=== PATIENT | male | born 1930 | race Caucasian/White ===

== ENCOUNTER 2018-04-01 12:36 | Day surgery (SDC) | payer MEDICARE, OTHER ==
[2018-04-01] MEDS ORDERED: Acetaminophen 500 MG TAB PO SCH (12:45)
[2018-04-01] MEDS ORDERED: diphenhydrAMINE 25 MG CAP PO SCH (12:45)
[2018-04-01] MEDS ORDERED: Sodium Chloride 0.9% 20 ML ONE (13:02)
[2018-04-01 14:18] VITALS: BP 156/69; TEMP 98.2
== END 2018-04-01 14:56 | disposition home or self-care (01) ==
LOC: ONC/OP 12:36
PROVIDERS: ATTEND Internal Medicine Hematology & Oncology
PROC: 30233N1 Transfusion of Nonautologous Red Blood Cells into Peripheral Vein, Percutaneous Approach (ICD-10-PCS; principal; 2018-04-01)
DX: D64.9 Anemia, unspecified (principal); D69.6 Thrombocytopenia, unspecified; Z79.899 Other long term (current) drug therapy; Z88.5 Allergy status to narcotic agent
CPT/HCPCS: 36430; 86900; 86901; P9035; Q0163

== ENCOUNTER 2018-04-09 08:22 | Day surgery (SDC) | payer MEDICARE, OTHER ==
[2018-04-09] MEDS ORDERED: Sodium Chloride 0.9% 20 ML ONE (08:30)
[2018-04-09] MEDS ORDERED: Acetaminophen 500 MG TAB PO SCH (08:45)
[2018-04-09] MEDS ORDERED: diphenhydrAMINE 25 MG CAP PO SCH (08:45)
[2018-04-09 14:29] VITALS: BP 153/67; TEMP 97.6
== END 2018-04-09 14:29 | disposition home or self-care (01) ==
LOC: ONC/OP 08:22
PROVIDERS: ATTEND Internal Medicine Hematology & Oncology
PROC: 30233N1 Transfusion of Nonautologous Red Blood Cells into Peripheral Vein, Percutaneous Approach (ICD-10-PCS; principal; 2018-04-09)
DX: D64.9 Anemia, unspecified (principal); D69.6 Thrombocytopenia, unspecified; Z88.5 Allergy status to narcotic agent
CPT/HCPCS: 36430; 85014; 85018; 86850; 86900; 86901; P9016; Q0163

== ENCOUNTER 2018-04-26 11:21 | Day surgery (SDC) | payer MEDICARE, OTHER ==
[2018-04-26] MEDS ORDERED: Sodium Chloride 0.9% 20 ML ONE (11:54)
[2018-04-26] MEDS ORDERED: diphenhydrAMINE 25 MG CAP PO SCH (12:15)
[2018-04-26] MEDS ORDERED: Acetaminophen 500 MG TAB PO SCH (12:15)
[2018-04-26 15:57] LABS: Hemoglobin 7.7 g/dL (14.0-18.0); Mean Corpuscular Hemoglobin 29.3 pg (27.0-31.0); Mean Corpuscular Volume 86.2 fL (78.0-98.0); Mean Platelet Volume 6.2 fL (7.4-10.4); Platelet Count 41 thou/uL (130-400); RBC Distribution Width 14.7 % (11.5-14.5); Red Blood Cell (RBC) Count 2.63 mill/uL (4.70-6.10); White Blood Cell (WBC) Count 0.6 thou/uL (4.8-10.8)
[2018-04-26 16:27] LABS: Anisocytosis SLIGHT = 6-15 cells (100X) (0-5/hpf); Elliptocytes SLIGHT = 2-5 cells (100X) (0-1/hpf); Hypochromia SLIGHT = 6-15 cells (100X) (0-5/hpf); Lymphocytes 84 % (21-51); MDiff Complete? YES; Monocytes 4 % (0-10); Neutrophil 12 % (42-75); Platelet Morphology Comment Appears Decreased; Poikilocytosis SLIGHT = 6-15 cells (100X) (0-5/hpf); Tear Drops SLIGHT = 2-5 cells (100X) (0-1/hpf)
[2018-04-26 18:06] VITALS: BP 171/74; TEMP 98
== END 2018-04-26 18:17 | disposition home or self-care (01) ==
LOC: ONC/OP 11:21
PROVIDERS: ATTEND Internal Medicine Hematology & Oncology
PROC: 30233R1 Transfusion of Nonautologous Platelets into Peripheral Vein, Percutaneous Approach (ICD-10-PCS; principal; 2018-04-26)
PROC: 30233N1 Transfusion of Nonautologous Red Blood Cells into Peripheral Vein, Percutaneous Approach (ICD-10-PCS; 2018-04-26)
DX: D64.9 Anemia, unspecified (principal); D69.6 Thrombocytopenia, unspecified; Z88.5 Allergy status to narcotic agent
CPT/HCPCS: 36430; 85025; 85060; 86850; 86900; 86901; P9016; P9035; Q0163

== ENCOUNTER 2018-04-28 19:39 | Inpatient (IN) | payer MEDICARE, OTHER ==
[2018-04-28 20:15] LABS: Hemoglobin 10.1 g/dL (14.0-18.0); Mean Corpuscular Volume 85.5 fL (78.0-98.0); Platelet Count 24 thou/uL (130-400); RBC Distribution Width 14.9 % (11.5-14.5); Red Blood Cell (RBC) Count 3.46 mill/uL (4.70-6.10); White Blood Cell (WBC) Count 0.7 thou/uL (4.8-10.8)
--- NOTE | 2018-04-28 20:34 | RAD ---
CHEST ONE VIEW: 04/28/18 HISTORY: Neutropenia. COMPARISON: None. FINDINGS: The lungs are clear. No pneumothorax or effusion. The cardiac silhouette and mediastinal contours are within normal limits. No acute osseous abnormality. Dense calcifications of the transverse aorta. IMPRESSION: No acute intrathoracic abnormality. POS: HOME
[2018-04-28 20:36] LABS: ALT (SGPT) 24 U/L (8-55); AST (SGOT) 28 U/L (5-34); Albumin 3.5 g/dL (3.4-4.8); Alkaline Phosphatase 78 U/L (40-150); Anion Gap 14 mmol/L (10-20); BUN (Urea Nitrogen) 16 mg/dL (8.4-25.7); Bilirubin, Total 1.1 mg/dL (0.2-1.2); Calc. Creatinine Clearance 0 mL/min (70-130); Calcium 8.8 mg/dL (7.8-10.44); Carbon Dioxide 20 mmol/L (23-31); Chloride 99 mmol/L (98-107); Estimated GFR-MDRD 81; Globulin 3.4 g/dL (2.4-3.5); Glucose 117 mg/dL (83-110); Potassium 3.3 mmol/L (3.5-5.1); Protein, Total 6.9 g/dL (5.8-8.1); Sodium 130 mmol/L (136-145)
[2018-04-28] MEDS ORDERED: Cefepime 2 GM VIAL ONE (20:51)
[2018-04-28 20:52] LABS: Band 1 % (5-11); Lymphocytes 81 % (21-51); MDiff Complete? YES; Monocytes 3 % (0-10); Neutrophil 15 % (42-75); Nucleated RBC 2 % (0); Platelet Morphology Comment Appears Decreased
[2018-04-28 20:57] LABS: CKMB 0.5 ng/mL (0-6.6)
[2018-04-28 20:59] LABS: Bilirubin Small (Negative); Blood, Urine Negative (Negative); Clarity CLEAR (Clear); Glucose, Urine (Dipstick) Negative (Negative); Leukocyte Negative (Negative); Nitrite Negative (Negative); Protein, Urine (Dipstick) 100 mg/dL (Neg-Trace); Specific Gravity, Urine 1.021 (1.002-1.036)
[2018-04-28 21:01] LABS: Bacteria/HPF None Seen HPF (None Seen); Hyaline Casts/LPF 4-6 HYALINE CAST LPF (0-3 Hyaline); Pathc Cast-AUWi Flag 1.01 (0-2.49); Squamous Epithelial 0-3 HPF (0-3); WBC/HPF 0-3 HPF (0-3)
[2018-04-28] MEDS ORDERED: Acetaminophen 500 MG TAB ONE (21:58)
[2018-04-28] MEDS ORDERED: Sodium Chloride 0.9% 100 ML ONE (22:56)
[2018-04-29] MEDS ORDERED: Acetaminophen 325 MG TAB PO PRN (00:24)
[2018-04-29] MEDS ORDERED: Ondansetron ODT 4 MG TAB SL PRN (00:24)
[2018-04-29] MEDS ORDERED: Ondansetron PF 4 MG/2 ML Vial IVP PRN ×2 (00:24→00:49)
[2018-04-29] MEDS ORDERED: Zolpidem Tartrate 5 MG TAB PO PRN (00:49)
[2018-04-29] MEDS ORDERED: Cepastat Lozenges 1 LOZ PO PRN (00:49)
[2018-04-29] MEDS ORDERED: Eucerin (Mineral Oil/Petrolatum,White) 30 gm Jar TOP PRN (00:49)
[2018-04-29] MEDS ORDERED: Calcium Carbonate 500 MG ChewTAB PO PRN (00:49)
[2018-04-29] MEDS ORDERED: Artificial Tears 18 DROP/0.9 ML EA EYE PRN (00:49)
[2018-04-29] MEDS ORDERED: Diabetic Tussin 200 MG/10 ML UDCUP PO PRN (00:49)
[2018-04-29] MEDS ORDERED: Loratadine 10 MG TAB PO PRN (00:49)
[2018-04-29] MEDS ORDERED: Sodium Chloride 0.65% Nasal 44 ML BOT EA NARE PRN (00:49)
[2018-04-29] MEDS ORDERED: Ondansetron ODT 4 MG TAB PO PRN (00:49)
[2018-04-29] MEDS ORDERED: Loperamide HCl 2 MG CAP PO PRN (00:49)
[2018-04-29] MEDS ORDERED: Senokot S 8.6-50 MG TAB PO PRN (00:49)
--- NOTE | 2018-04-29 01:36 | HP ---
PRIMARY CARE PHYSICIAN: Dr. Karson Gomez. The patient is seen and examined on the day of 04/28/2018. PRIMARY ONCOLOGIST: Dr. Cervantes. REASON FOR ADMISSION: Neutropenic fever. HISTORY OF PRESENT ILLNESS: An 87-year-old male who has long history of myelodysplastic syndrome. Initially, his primary care physician was monitoring his blood count, but as his blood count gotten worse and that is why he was referred to pediatric dentist. Dr. Cervantes was following. He did a bone marrow examination and finding was consistent with myelodysplastic syndrome. The patient was also referred to [facility] where they did repeat a bone marrow examination and found with leukemia. At that point, the patient was started on chemotherapy. The patient had first round of chemotherapy about 2 weeks ago. Subsequently, the patient was following with Dr. Cervantes for periodic blood count monitoring. Last Thursday, the patient's WBC was 0.9 and platelet count was 3. The patient was given blood transfusion and platelet transfusion. Last night, the patient was feeling more weak, tired, and he was having fever with chills. The patient was not feeling normal and he was getting more and more tired and going down side and that is why patient's family member called Dr. Cervantes who advised him to go to emergency room for evaluation. Initially, his fever was only momentarily responding to Tylenol , but he kept getting recurrent high-grade fever with chills. He denies any cough , flu-like illness. He denies any constipation, diarrhea. He denies any melena or hematochezia. He denies any urinary tract infection symptoms. In the emergency room, he was febrile to temperature 102.9 and tachycardia with pulse of 101. He had an indeterminate troponin and elevated BNP. The patient was also found with severe neutropenia as well as thrombocytopenia and anemia. The patient is being admitted to telemetry floor for close monitoring. REVIEW OF SYSTEMS: CONSTITUTIONAL: Negative for weight loss or gain, ability to conduct usual activities. SKIN: Negative for rash, itching. EYES: Negative for double vision, pain. ENT/MOUTH: Negative for nose bleeding, neck stiffness, pain, tenderness. CARDIOVASCULAR: Negative for palpitations, dyspnea on exertion, orthopnea. RESPIRATORY: Negative for shortness of breath, wheezing, cough, hemoptysis, fever or night sweats. GASTROINTESTINAL: Negative for poor appetite, abdominal pain, heartburn, nausea , vomiting, constipation, or diarrhea. GENITOURINARY: Negative for urgency, frequency, dysuria, nocturia. MUSCULOSKELETAL: Negative for pain, swelling. NEUROLOGIC/PSYCHIATRIC: Negative for anxiety, depression. ALLERGY/IMMUNOLOGIC: Negative for skin rash, bleeding tendency. Please see my HPI for pertinent positives and negatives. All other review of systems reviewed and negative except as mentioned in HPI. PAST MEDICAL HISTORY: Myelodysplastic syndrome with leukemia, hypothyroidism, and glaucoma. PAST SURGICAL HISTORY: Back surgery x2, bone marrow biopsy, and bladder surgery x3. PAST PSYCHIATRIC HISTORY: Reviewed and negative. SOCIAL HISTORY: The patient drinks alcohol socially and occasionally. He is a former smoker. He quit smoking more than 20 years ago. He is and lives at home with his . ALLERGIES: CODEINE SULFATE. CURRENT HOME MEDICATIONS: The patient take some eyedrops for glaucoma and levothyroxine 112 mcg p.o. daily. Other medications; the patient does not know and they did not bring any more medication bottle, so unable to review at this point. FAMILY HISTORY: No family history of coronary artery disease, stroke, or cancer. EMERGENCY ROOM COURSE: The patient received vancomycin, cefepime, and Tylenol. PHYSICAL EXAMINATION: VITAL SIGNS: On arrival, blood pressure 154/71, pulse 101, respiratory rate 26, temperature 102.9, saturation 99% on room air. Weight 76.6 kg. GENERAL: The patient is currently alert, awake, tachycardic, febrile, weak, pale. HEENT: Head; normocephalic and atraumatic. Eyes; pupils are round, reactive to light. Conjunctiva pale. No nystagmus. ENT; dry mucous membranes. No oral lesion. No pharyngeal erythema. No exudate. NECK: Supple. No JVD. No thyromegaly. No carotid bruit. LUNGS: Clear to auscultation without any rhonchi or rales. CARDIAC: S1, S2 regular. Soft systolic murmur noted. Tachycardia. No gallop. No rub. ABDOMEN: Soft. Bowel sounds present. Mild discomfort noted in lower part of the abdomen. No peritoneal sign. No guarding. No rigidity. No rebound. No suprapubic tenderness. BACK EXAMINATION: Unremarkable. No CVA tenderness. EXTREMITIES: Upper extremities, passive movement of all joints are normal. Lower extremities, no edema. Good distal pulsation. SKIN: No skin rash. HEMATOLOGICAL SYSTEM: No lymphadenopathy. PSYCHIATRIC: Normal affect. SIGNIFICANT LABORATORY DATA: Chest x-ray showing no acute cardiopulmonary process. EKG showing sinus tachycardia, incomplete left bundle-branch block pattern. CBC ; WBC is 0.7, hemoglobin 10.1, platelets 24, bandemia. BMP; sodium 130, potassium 3.3, chloride 99, carbon dioxide 20, BUN 16, creatinine 0.89, glucose 117, calcium 8.8. LFTs; AST 28, ALT 24, alkaline phosphatase 78, albumin 3.5, TSH 0.42. BNP 265. CK-MB 0.5. Troponin 0.032. Urinalysis unremarkable. ASSESSMENT/PLAN: 1. Neutropenic fever. This patient's WBC count is 0.7. The patient has associated high-grade fever. The patient received chemotherapy a couple weeks ago. Source of infection is unclear at this point, but the patient will be treated with vancomycin and Zosyn empirically. We will follow up on blood and urine culture result. We will also check stool for C. difficile if patient has diarrhea. We will continue with gentle IV fluids. 2. Sepsis with acute organ dysfunction. The patient has sepsis criteria with severe neutropenia and fever along with demand ischemia, rule out bacteremia with followup on culture result and as mentioned above, the patient is started on broad- spectrum antibiotic therapy and we will monitor on telemetry floor. 3. Demand ischemia of myocardium. We will do serial cardiac enzyme x3 and monitor on telemetry floor and we will obtain echocardiography. 4. Elevated BNP, most likely diastolic dysfunction, but we will obtain echocardiography to assess EF and other structural abnormality. 5. Abnormal electrolytes due to hyponatremia and hypokalemia. The patient will be given NS with KCl at 50 mL/h and we will repeat BMP tomorrow. Likely, this is due to patient's poor p.o. intake. 6. Thrombocytopenia and anemia along with neutropenia, likely due to post chemotherapy as well as underlying hematological disorder with myelodysplastic syndrome and leukemia. Hematology will be consulted while in hospital and we will monitor daily CBC. 7. Hypothyroidism. TSH is within normal limits. 8. Glaucoma. We will continue Xalatan eye drops, dorzolamide, timolol ophthalmic drops while in hospital. 9. Gout. We will continue allopurinol 300 mg p.o. daily. 10. For deep venous thrombosis prophylaxis, SCD boots. No Lovenox because of low platelet count. 11. Gastrointestinal prophylaxis, Pepcid 20 mg p.o. b.i.d. CODE STATUS: I spoke with the patient and patient's . The patient will be full code. The patient's is surrogate decision maker. DISPOSITION PLAN: Based on clinical course, we are expecting the patient's stay in hospital more than 2 midnights. Plan of care discussed with the patient and family member. This patient was seen and examined in the emergency room on April 28, 2018. Job ID: [id number] [facility]
[2018-04-29] MEDS: NS 0.9% w/ 20 MEQ KCL 1,000 ML/1,000 ML BAG IV SCH ×2 (02:51→21:52)
[2018-04-29] MEDS: Piperacillin/Tazobactam 3.375 GM in Sodium Chloride 0.9% 100 ML IVPB SCH ×2 (02:51→09:13)
[2018-04-29 03:52] LABS: Hemoglobin 10.1 g/dL (14.0-18.0); Mean Corpuscular HGB CONC 33.6 g/dL (32.0-36.0); Mean Corpuscular Hemoglobin 29.5 pg (27.0-31.0); Mean Corpuscular Volume 87.9 fL (78.0-98.0); Mean Platelet Volume 15.2 fL (7.4-10.4); Platelet Count 19 thou/uL (130-400); RBC Distribution Width 14.7 % (11.5-14.5); Red Blood Cell (RBC) Count 3.41 mill/uL (4.70-6.10); White Blood Cell (WBC) Count 0.8 thou/uL (4.8-10.8)
[2018-04-29 03:57] LABS: ALT (SGPT) 21 U/L (8-55); AST (SGOT) 26 U/L (5-34); Albumin 3.3 g/dL (3.4-4.8); Alkaline Phosphatase 66 U/L (40-150); Anion Gap 15 mmol/L (10-20); BUN (Urea Nitrogen) 16 mg/dL (8.4-25.7); Band 2 % (5-11); Bilirubin, Total 1.1 mg/dL (0.2-1.2); Calc. Creatinine Clearance 64 mL/min (70-130); Calcium 8.8 mg/dL (7.8-10.44); Carbon Dioxide 17 mmol/L (23-31); Chloride 103 mmol/L (98-107); Estimated GFR-MDRD 84; Globulin 3.2 g/dL (2.4-3.5); Glucose 113 mg/dL (83-110); MDiff Complete? YES; Neutrophil 14 % (42-75); Potassium 3.4 mmol/L (3.5-5.1); Protein, Total 6.5 g/dL (5.8-8.1); Sodium 132 mmol/L (136-145)
[2018-04-29 03:58] LABS: Lymphocytes 82 % (21-51); Monocytes 2 % (0-10); Platelet Morphology Comment Appears Decreased
[2018-04-29 04:10] LABS: Lactic Acid 1.6 mmol/L (0.5-2.2)
[2018-04-29 04:12] LABS: CKMB 0.4 ng/mL (0-6.6)
[2018-04-29] MEDS: Acetaminophen 325 MG TAB PO PRN ×2 (09:13→17:10)
[2018-04-29] MEDS: Vancomycin HCl 1 GM in Premix Bag 1 BAG IVPB SCH ×2 (11:18→21:53)
[2018-04-29] MEDS: Famotidine 20 MG TAB PO SCH ×2 (11:27→20:43)
--- NOTE | 2018-04-29 14:03 | PDOC.PN ---
- Subjective Encounter Start Date: 04/29/18 Encounter Start Time: 08:00 Pt seen for followup re: sepsis. Denies chest pain or shortness of breath. Weakness+. - Objective Resuscitation Status - Order Detail: 04/28/18 21:59 Resuscitation Status Routine Resuscitation Status: FULL: Full Resuscitation MAR Reviewed: Yes Vital Signs & Weight: Vital Signs (12 hours) Temp Pulse Resp BP BP Pulse Ox 04/29/18 11:15 98.2 F 91 16 98/51 L 96 04/29/18 08:43 100.1 F H 103 H 16 131/60 98 04/29/18 04:45 98.9 F 96 18 109/52 L 97 Weight Weight 166 lb I&O: 04/28/18 04/29/18 04/30/18 06:59 06:59 06:59 Intake Total 250 Output Total 500 Balance -250 Result Diagrams: 04/29/18 03:15 04/29/18 03:15 Additional Labs: Labs reviewed by me Phys Exam - Physical Examination Constitutional: NAD HEENT: moist MMs, sclera anicteric, oral pharynx no lesions, 2+ tonsils Neck: no nodes, no JVD, supple, full ROM Respiratory: clear to auscultation bilateral Cardiovascular: RRR, no rub S1, S2 Gastrointestinal: soft, non-tender, no distention, positive bowel sounds Neurological: moves all 4 limbs Psychiatric: normal affect, A&O x 3 Dx/Plan (1) Sepsis Code(s): A41.9 - SEPSIS, UNSPECIFIED ORGANISM Status: Acute Comment: secondary to MRSA bacteremia, continue IV antibiotics as below (2) Febrile neutropenia Code(s): D70.9 - NEUTROPENIA, UNSPECIFIED; R50.81 - FEVER PRESENTING WITH CONDITIONS CLASSIFIED ELSEWHERE Status: Acute Comment: maninatin neutropenic precautions, continue IV antibiotics as below (3) Bacteremia due to methicillin resistant Staphylococcus aureus Code(s): R78.81 - BACTEREMIA Status: Acute Comment: continue IV vancomycin (4) Pancytopenia Code(s): D61.818 - OTHER PANCYTOPENIA Status: Acute Comment: secondary to chemotherapy (5) Hypokalemia Code(s): E87.6 - HYPOKALEMIA Status: Acute Comment: replace potassium - Plan * . Review of Systems - Review of Systems Constitutional: weakness. negative: fever, chills, sweats, malaise Respiratory: negative: Cough, Shortness of Breath, SOB with Excertion, Pleuritic Pain, Sputum Cardiovascular: negative: chest pain, palpitations, orthopnea, paroxysmal nocturnal dyspnea, edema, light headedness Gastrointestinal: negative: Nausea, Vomiting, Abdominal Pain, Diarrhea, Constipation, Melena, Hematochezia Genitourinary: negative: Dysuria, Frequency, Incontinence, Hematuria, Retention Musculoskeletal: negative: Neck Pain, Shoulder Pain, Arm Pain, Back Pain, Hand Pain, Leg Pain, Foot Pain - Medications/Allergies Allergies/Adverse Reactions: Allergies Allergy/AdvReac Type Severity Reaction Status Date / Time codeine Allergy Verified 02/02/14 13:50 Medications: Current Medications Acetaminophen (Tylenol) 650 mg PO Q4H PRN PRN Reason: Headache/Fever/Mild Pain (1-3) Last Admin: 04/29/18 09:13 Dose: 650 mg Artificial Tears (Tears Naturale) 2 drop EA EYE PRN PRN PRN Reason: Dry Eyes Bisacodyl (Dulcolax) 10 mg FL DAILYPRN PRN PRN Reason: Constipation Calcium Carbonate (Tums) 1,000 mg PO Q4H PRN PRN Reason: Heartburn or Indigestion Famotidine (Pepcid) 20 mg PO BID REPLACED BY [facility] Last Admin: 04/29/18 11:27 Dose: Not Given Guaifenesin (Robitussin Sf) 200 mg PO Q4H PRN PRN Reason: Cough Hydralazine HCl (Apresoline) 10 mg SLOW IVP Q4H PRN PRN Reason: SBP > 180 and HR < 70 Piperacillin Sod/Tazobactam (Sod 3.375 gm/ Sodium Chloride) 100 mls @ 200 mls/ hr IVPB 0300,0900,1500,2100 REPLACED BY [facility] Last Admin: 04/29/18 09:13 Dose: 100 mls Potassium Chloride/Sodium Chloride (Ns 0.9% W/ 20 Meq Kcl) 1,000 ml in 1,000 mls @ 50 mls/hr IV .Q20H REPLACED BY [facility] Last Admin: 04/29/18 02:51 Dose: 1,000 mls Vancomycin HCl 1 gm/ Device 200 mls @ 200 mls/hr IVPB 1000,2200 REPLACED BY [facility] Last Admin: 04/29/18 11:18 Dose: 200 mls Loperamide HCl (Imodium) 2 mg PO PRN PRN PRN Reason: Diarrhea/Loose Stools Loratadine (Claritin) 10 mg PO DAILYPRN PRN PRN Reason: Sinus Symptoms Mineral Oil/White Petrolatum (Eucerin Cream) 0 gm TOP BIDPRN PRN PRN Reason: Dry Skin Miscellaneous Medication (Pharmacy To Dose) 1 each IVPB PRN PRN PRN Reason: Pharmacy to dose Ondansetron HCl (Zofran Odt) 4 mg PO Q6H PRN PRN Reason: Nausea/Vomiting Ondansetron HCl (Zofran) 4 mg IVP Q6H PRN PRN Reason: Nausea/Vomiting Senna/Docusate Sodium (Senokot S) 2 tab PO BIDPRN PRN PRN Reason: Constipation Sodium Chloride ([place] Nasal [place] 0.65%) 0 ml EA NARE QIDPRN PRN PRN Reason: Nasal Congestion Throat Lozenges (Cepastat Lozenges) 1 sumanth PO Q2H PRN PRN Reason: Sore Throat Zolpidem Tartrate (Ambien) 5 mg PO HSPRN PRN PRN Reason: Insomnia
[2018-04-29] MEDS ORDERED: Potassium Chloride 20 MEQ TAB PO SCH (14:15)
--- NOTE | 2018-04-29 15:53 | CON ---
DATE OF CONSULTATION: 04/29/2018 REASON FOR CONSULTATION: Bacteremia. HISTORY OF PRESENT ILLNESS: An 87-year-old with a history of myelodysplastic syndrome and leukemia, currently on chemotherapy, the first round about 2 weeks prior. About 5 days before admission, his white cell count was 0.9 and platelets 3000. The patient was given packed red blood cell transfusion and platelet transfusion. The night before admission, he felt weaker, fever, and chills. Apparently, he fell in the house. He lives in [place] with family members. He was brought in and blood pressure was 150/71 in the emergency room, pulse 101, respirations 26, temperature at 102.9, and O2 saturation 99%. He was described as alert, pale. The lung examination is not described. The initial laboratory data, white cell count 0.7 with platelets 24,000, 15% neutrophils, with total neutrophil count were about approximately 65. Hemoglobin 10.1 and MCV 85. The chemistry sodium 132 and potassium 3.4. Liver profile normal. BNP 265, albumin 3.3, globulin 3.2. Urinalysis with 0 to 3 wbc's, protein 100. 2/2 sets of blood cultures with MRSA. Urine culture, no growth at 12 hours. Imaging studies included a chest x-ray with no infiltrates. Currently, he is awake. He has got hearing impairment, which is moderate. Denies headaches. No visual symptoms, sore throat, odynophagia, or dysphagia. No back pain. No chest pain. No abdominal pain. No diarrhea. No genitourinary symptoms. He is voiding in the urinal. PAST MEDICAL HISTORY: Myelodysplastic syndrome and leukemia diagnosed at [facility] with bone marrow biopsy, chemotherapy started and hypothyroidism. PAST SURGICAL HISTORY: Laminectomy and fusion and bladder cystoscopy. SOCIAL HISTORY: Drinks occasionally. Former smoker. . Lives in [place] with . ALLERGIES: CODEINE. FAMILY HISTORY: Noncontributory. CURRENT MEDICATIONS: 1. Tears Naturale. 2. Dulcolax. 3. Tums. 4. Pepcid. 5. Apresoline. 6. Imodium. 7. Claritin. 8. Zofran. 9. Zosyn. 10. Vancomycin. PHYSICAL EXAMINATION: VITAL SIGNS: T-max 100.1, blood pressure 98/51, pulse 91, respirations 16, and O2 saturation 96%. SKIN: With area of laceration of the elbow on right side with bruising, but no inflammatory changes. The patient has a peripheral IV access. No central lines or ports are noted. No lymphadenopathy. Ocular movements are conjugate. Sclerae are white. Pupils are equal. Conjunctivae normal. Oral cavity normal. Quite a few teeth in place still. NECK: Supple. No jugular vein distention. LUNGS: Symmetric air entry. No crackles or wheezing. CARDIOVASCULAR: S1 and S2 without murmurs. No S3 or S4. ABDOMEN: Soft, not distended or tender. No ascites. No bladder distention. MUSCULOSKELETAL: No joint inflammatory activity. No back tenderness. Moves extremities equally. NEUROLOGIC: He is awake. Other than hearing impairment, seems to be oriented, follows commands. DIAGNOSTIC STUDIES: Followup labs; we have a white cell count of 0.8, hemoglobin 10.1, and platelets 19,000. ASSESSMENT: 1. Myelodysplastic syndrome/leukemia, on chemotherapy. 2. Neutropenia. 3. Methicillin-resistant Staphylococcus aureus bacteremia of uncertain primary site. DISCUSSION: Differential diagnosis includes endocarditis, MRSA of unknown primary site, possible hematogenous pneumonitis, which was not identified by the chest x-ray. We will order a CT of chest without contrast and echocardiogram if not ordered yet. No evidence of spinal involvement or other bone or joint involvement at this point in time. No evidence of phlebitis. Continue vancomycin. Discontinue Zosyn. Job ID: [id number]
--- NOTE | 2018-04-29 15:55 | CON ---
DATE OF CONSULTATION: REASON FOR CONSULTATION: Neutropenic fever. HISTORY OF PRESENT ILLNESS: Mr. Barney is a pleasant 87-year-old gentleman, who has a high-grade myelodysplastic syndrome. He had a bone marrow in February at [facility], showed myelodysplastic syndrome with excessive blasts of 5% to 8%. He had a TP53 mutation. This was a very high-risk setting and is associated with 1 year or less overall survival with 25% potential evolution into AML. Mr. Barney despite his advanced age had a very good functional status and family support, so the decision was made to begin Dacogen chemotherapy. His 1st cycle was in March. His 5-day cycle ended on 04/16. CBC has been followed weekly as he is platelet transfusion dependent with the expectation that his white count would drop slightly. On 04/26, his white count was 0.6, hemoglobin was 7.7, and his platelet count was 41,000. He did receive a transfusion of 1 unit of platelets and 2 units of packed RBCs. Yesterday, he fell at home and was extremely weak. He was brought to the emergency room for evaluation. His temperature was 102.9 and white count was 0.7. Blood cultures were drawn and show gram-positive cocci and MRSA. The patient has been on vancomycin and Zosyn. PAST MEDICAL HISTORY: 1. High-grade myelodysplastic syndrome. 2. Hyperlipidemia. 3. 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 4. Hypothyroidism. 5. Lumbar stenosis. 6. Gout. 7. Ulcerative colitis. 8. Acid reflux. PAST SURGICAL HISTORY: 1. Laminectomy. 2. Nasal surgery. 3. Repeat laminectomy. 4. TURBT in 10/2016. ALLERGIES: NO KNOWN DRUG ALLERGIES. HOME MEDICATIONS: 1. Eye drops twice daily. 2. Folic acid daily. 3. Levothyroxine 112 mcg daily. 4. Magnesium 30 mg daily. 5. Potassium chloride 10 mEq daily. 6. Multivitamins daily. FAMILY HISTORY: No history of blood disorder or malignancy. SOCIAL HISTORY: , has 3 children. Lives with his spouse. No alcohol, tobacco, or illicit drug use. REVIEW OF SYSTEMS: Deferred secondary to somnolence. PHYSICAL EXAMINATION: VITAL SIGNS: Temperature 100.1, pulse is 103, respiratory rate 16, BP is 98/51, and he is 98% on room air. GENERAL: Chronically ill-appearing male, in no acute distress. HEENT: Normocephalic and atraumatic. NECK: Supple. CV: Regular rate and rhythm. LUNGS: Clear. ABDOMEN: Soft and nontender. Bowel sounds are positive. EXTREMITIES: No clubbing, cyanosis, or edema. SKIN: He has no rash. HEMATOLOGIC: He has scattered bruising on his arms and trunk. NEUROLOGIC: Nonfocal. PERTINENT LABORATORY DATA AND X-RAYS: Current WBCs are 0.8, hemoglobin 10.1, hematocrit 30, platelet count is 19, neutrophils are 14%, got 2% bands, and 82% lymphocytes. Sodium 132, potassium 3.4, chloride 103, CO2 of 17, BUN is 16, and creatinine 0.86. Lactic acid 1.6. Calcium 8.8. Bilirubin is 1.1, AST is 26, ALT is 21, and alkaline phosphatase is 66. Serum total protein is 6.5, albumin 3.3, and globulin 3.2. Chest x-ray showed no acute process. ASSESSMENT: 1. High-grade myelodysplastic syndrome status post cycle 1 of Dacogen. 2. Neutropenic fever with methicillin-resistant Staphylococcus aureus bacteremia. 3. 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 DISCUSSION: The patient has been started on empiric antibiotics. I will consult Infectious Disease for their opinion. Follow a CBC daily and transfuse for platelets less than 15. I discussed code status with the family. I will have the palliative care team come and discuss this further as he has a poor prognosis. Thank you for the consult. We will follow his hospital course. Job ID: [id number]
[2018-04-29] MEDS: Latanoprost 0.005% Ophth Soln 2.5 ml Bottle EA EYE SCH (20:44)
[2018-04-29] MEDS: DorzolamidE/Timolol 2%/0.5% Ophth Soln 10 ml Bottle EA EYE SCH (20:50)
[2018-04-30] MEDS: NS 0.9% w/ 20 MEQ KCL 1,000 ML/1,000 ML BAG IV SCH ×2 (01:52→03:20)
[2018-04-30] MEDS: Acetaminophen 325 MG TAB PO PRN (05:36)
[2018-04-30] MEDS: Levothyroxine Sodium 112 MCG TAB PO SCH (05:36)
[2018-04-30 06:52] LABS: Hemoglobin 7.7 g/dL (14.0-18.0); Mean Corpuscular HGB CONC 34.7 g/dL (32.0-36.0); Mean Corpuscular Hemoglobin 29.9 pg (27.0-31.0); Mean Corpuscular Volume 86.1 fL (78.0-98.0); Mean Platelet Volume 16.4 fL (7.4-10.4); Platelet Count 10 thou/uL (130-400); RBC Distribution Width 14.9 % (11.5-14.5); Red Blood Cell (RBC) Count 2.57 mill/uL (4.70-6.10); White Blood Cell (WBC) Count 0.4 thou/uL (4.8-10.8)
[2018-04-30 07:15] LABS: MDiff Complete? YES; Ovalocytes SLIGHT = 2-5 cells (100X) (0-1/hpf); Platelet Morphology Comment Appears Decreased
[2018-04-30 08:30] LABS: Vancomycin, Trough 14.3 ug/mL
[2018-04-30] MEDS: Famotidine 20 MG TAB PO SCH ×2 (08:58→21:34)
[2018-04-30] MEDS: DorzolamidE/Timolol 2%/0.5% Ophth Soln 10 ml Bottle EA EYE SCH ×2 (08:58→21:35)
[2018-04-30] MEDS: Vancomycin HCl 1 GM in Premix Bag 1 BAG IVPB SCH ×2 (13:58→21:53)
--- NOTE | 2018-04-30 14:01 | PRG ---
DATE OF SERVICE: 04/30/2018 SUBJECTIVE: Feeling better. No respiratory symptoms. No abdominal pain. No cough. No genitourinary symptoms. OBJECTIVE: VITAL SIGNS: T-max 98, BP 140/60. LUNGS: Clear. HEART: S1 and S2. Regular rate. ABDOMEN: Soft, not distended. LABORATORY DATA: White cell count 0.4, total neutrophil count is not reportable , and platelets at 10. Microbiology with Staph aureus from blood cultures, which is MRSA. Vancomycin trough 14. IMAGING STUDIES: There is an echocardiogram, which was completed, and we have a normal ejection fraction, some diastolic dysfunction, moderate aortic root regurgitation. ASSESSMENT AND DISCUSSION: 1. Myelodysplastic syndrome on chemotherapy. 2. Neutropenia. 3. Methicillin-resistant Staphylococcus aureus bacteremia. We are uncertain for primary site. 4. He does have moderate aortic regurgitation. May consider MAT once he recovers from his neutropenia to rule out aortic valve endocarditis. Continue vancomycin for now. I did not order yet the CT chest. We will go ahead and order that to rule out hematogenous pneumonia. Job ID: [id number] [facility]
--- NOTE | 2018-04-30 15:55 | CT ---
NONCONTRAST CT THORAX: Date: 04/30/18 HISTORY: Bacteremia, septic pneumonia. COMPARISON: None available. FINDINGS: There is a very small right pleural effusion and associated atelectasis. There are minimal parenchyma l changes at the left lung base, also likely attributable to atelectasis. No additional areas of cons olidation are seen. There is a small, slightly irregular, approximately 5.0 mm pulmonary nodule in th e right middle lobe inferiorly adjacent to the hemidiaphragm. This is too small to further characteri ze. Calcified granuloma is seen in the left lower lobe. There is suggestion of a tiny pneumothorax at the posteromedial aspect right lung base. Vascular calcifications are seen in the thoracic aorta, and to a lesser extent within the coronary ar teries. A tiny pericardial effusion versus pericardial thickening is present. Lack of intravenous contrast does limit evaluation of the mediastinal structures, as well as vasculat ure, but no definitive enlarged lymph nodes are appreciated. Calcified granuloma seen in the right hepatic lobe. Remainder of the visualized upper abdomen demonstrates grossly normal nonenhanced CT appearance. Degenerative changes are seen in the spine. IMPRESSION: 1. Tiny pneumothorax along the medial aspect of the right lung base associated with a small right pl eural effusion. 2. Atelectasis left lung base. 3. Too small to characterize, approximately 5.0 mm, right middle lobe pulmonary nodule. 4. Tiny pericardial effusion. Above findings discussed with Dr. Gross on 04/30/18 at 1526 hours. CODE CR. POS: [facility]
--- NOTE | 2018-04-30 19:36 | PDOC.PN ---
- Subjective Encounter Start Date: 04/30/18 Encounter Start Time: 19:35 (late entry) Subjective: fells a little bit better -: care discussed w at bedside - Objective Resuscitation Status - Order Detail: 04/30/18 12:56 Resuscitation Status Routine Resuscitation Status: DNAR: NO Resuscitation Discussed with: confirmed with pt and his Additional comments: DNAR consent signed by pt himself MAR Reviewed: Yes Vital Signs & Weight: Vital Signs (12 hours) Temp Pulse Pulse Resp BP BP Pulse Ox 04/30/18 17:44 99.5 F 100 18 172/74 H 96 04/30/18 12:23 97.9 F 82 18 145/65 H 98 04/30/18 11:45 98.0 F 83 18 109/52 L 99 04/30/18 10:12 98.6 F 70 18 105/50 L 04/30/18 10:04 96.7 F L 75 18 109/57 L 98 04/30/18 08:00 98.0 F 76 18 108/55 L 97 Weight Admit Weight 166 lb Weight 166 lb I&O: 04/29/18 04/30/18 05/01/18 06:59 06:59 06:59 Intake Total 250 900 250 Output Total 500 550 Balance -250 350 250 Result Diagrams: 04/30/18 06:04 04/29/18 03:15 Additional Labs: Microbiology 04/28/18 20:32 Urine voided Urine Culture - Preliminary NO GROWTH AT 12 HOURS 04/28/18 20:13 Venous blood - Right Hand Blood Culture - Preliminary Staphylococcus aureus 04/28/18 19:58 Venous blood - Left Arm Blood Culture - Preliminary Methicillin resistant S.aureus Laboratory Tests 04/28/18 04/28/18 04/29/18 19:58 19:58 03:15 Troponin I 0.032 H 0.042 H B-Natriuretic Peptide 265.0 H 04/29/18 05:52 Troponin I 0.041 H B-Natriuretic Peptide Phys Exam - Physical Examination Constitutional: NAD weak tired but nad HEENT: PERRLA, moist MMs, sclera anicteric, oral pharynx no lesions Neck: no JVD Respiratory: no wheezing, no rales, no rhonchi, clear to auscultation bilateral Cardiovascular: RRR, no significant murmur Gastrointestinal: soft, non-tender, no distention, positive bowel sounds Musculoskeletal: no edema, pulses present Neurological: non-focal, normal sensation, moves all 4 limbs Psychiatric: normal affect, A&O x 3 Deviation from normal: circular rash on buttock Dx/Plan (1) Sepsis Code(s): A41.9 - SEPSIS, UNSPECIFIED ORGANISM Status: Acute Comment: secondary to MRSA bacteremia, continue IV antibiotics as below (2) Bacteremia due to methicillin resistant Staphylococcus aureus Code(s): R78.81 - BACTEREMIA Status: Acute Comment: continue IV vancomycin (3) Febrile neutropenia Code(s): D70.9 - NEUTROPENIA, UNSPECIFIED; R50.81 - FEVER PRESENTING WITH CONDITIONS CLASSIFIED ELSEWHERE Status: Acute Comment: maninatin neutropenic precautions, continue IV antibiotics as below (4) Hypokalemia Code(s): E87.6 - HYPOKALEMIA Status: Acute Comment: replace potassium (5) Pancytopenia Code(s): D61.818 - OTHER PANCYTOPENIA Status: Acute Comment: secondary to chemotherapy (6) Demand ischemia Code(s): I24.8 - OTHER FORMS OF ACUTE ISCHEMIC HEART DISEASE Status: Acute Comment: from sepsis - Plan DVT proph w/SCDs trasfuse platelt.monitor -: cont vancomycin.apprecitae ID recs -: ECHO shows AR and MR. -: CT chest w small PTX 7 small lung nodule.no PNA -: supportive care.poor prognosis.PCT for code status .am labs * . Review of Systems - Review of Systems Constitutional: weakness, malaise - Medications/Allergies Allergies/Adverse Reactions: Allergies Allergy/AdvReac Type Severity Reaction Status Date / Time codeine Allergy Verified 02/02/14 13:50 Medications: Current Medications Acetaminophen (Tylenol) 650 mg PO Q4H PRN PRN Reason: Headache/Fever/Mild Pain (1-3) Last Admin: 04/30/18 05:36 Dose: 650 mg Artificial Tears (Tears Naturale) 2 drop EA EYE PRN PRN PRN Reason: Dry Eyes Bisacodyl (Dulcolax) 10 mg [place] DAILYPRN PRN PRN Reason: Constipation Calcium Carbonate (Tums) 1,000 mg PO Q4H PRN PRN Reason: Heartburn or Indigestion Dorzolamide/Timolol (Cosopt 2-0.5% Ophth Soln) 1 drop EA EYE BID [facility] Last Admin: 04/30/18 08:58 Dose: 1 drop Famotidine (Pepcid) 20 mg PO BID [facility] Last Admin: 04/30/18 08:58 Dose: Not Given Guaifenesin (Robitussin Sf) 200 mg PO Q4H PRN PRN Reason: Cough Hydralazine HCl (Apresoline) 10 mg SLOW IVP Q4H PRN PRN Reason: SBP > 180 and HR < 70 Potassium Chloride/Sodium Chloride (Ns 0.9% W/ 20 Meq Kcl) 1,000 ml in 1,000 mls @ 50 mls/hr IV .Q20H [facility] Last Admin: 04/30/18 03:20 Dose: 1,000 mls Vancomycin HCl 1 gm/ Device 200 mls @ 200 mls/hr IVPB 1000,2200 [facility] Last Admin: 04/30/18 13:58 Dose: 200 mls Latanoprost (Xalatan 0.005% Ophth Soln) 1 drop EA EYE HS [facility] Last Admin: 04/29/18 20:44 Dose: 1 drop Levothyroxine Sodium (Synthroid) 112 mcg PO 0600 [facility] Last Admin: 04/30/18 05:36 Dose: 112 mcg Loperamide HCl (Imodium) 2 mg PO PRN PRN PRN Reason: Diarrhea/Loose Stools Loratadine (Claritin) 10 mg PO DAILYPRN PRN PRN Reason: Sinus Symptoms Mineral Oil/White Petrolatum (Eucerin Cream) 0 gm TOP BIDPRN PRN PRN Reason: Dry Skin Miscellaneous Medication (Pharmacy To Dose) 1 each IVPB PRN PRN PRN Reason: Pharmacy to dose Nystatin (Mycostatin Powder) 1 gm TOP BID [facility] Ondansetron HCl (Zofran Odt) 4 mg PO Q6H PRN PRN Reason: Nausea/Vomiting Ondansetron HCl (Zofran) 4 mg IVP Q6H PRN PRN Reason: Nausea/Vomiting Senna/Docusate Sodium (Senokot S) 2 tab PO BIDPRN PRN PRN Reason: Constipation Sodium Chloride ([place] Nasal [place] 0.65%) 0 ml [place] NARE QIDPRN PRN PRN Reason: Nasal Congestion Throat Lozenges (Cepastat Lozenges) 1 sumanth PO Q2H PRN PRN Reason: Sore Throat Zolpidem Tartrate (Ambien) 5 mg PO HSPRN PRN PRN Reason: Insomnia
[2018-04-30] MEDS ORDERED: Potassium Chloride 40 MEQ in Sodium Chloride 0.9% 500 ML IVPB SCH (20:00)
[2018-04-30] MEDS: Latanoprost 0.005% Ophth Soln 2.5 ml Bottle EA EYE SCH (21:31)
[2018-04-30] MEDS: Nystatin Powder 15 GM BOT TOP SCH (21:35)
[2018-04-30] MEDS: Bisacodyl 10 MG SUPP PR PRN (21:47)
[2018-05-01] MEDS: Acetaminophen 325 MG TAB PO PRN ×2 (04:00→20:14)
[2018-05-01 05:29] LABS: Hemoglobin 7.6 g/dL (14.0-18.0); Mean Corpuscular HGB CONC 33.6 g/dL (32.0-36.0); Mean Corpuscular Volume 86.3 fL (78.0-98.0); Mean Platelet Volume 11.2 fL (7.4-10.4); Platelet Count 29 thou/uL (130-400); Red Blood Cell (RBC) Count 2.62 mill/uL (4.70-6.10); White Blood Cell (WBC) Count 0.6 thou/uL (4.8-10.8)
[2018-05-01] MEDS: Levothyroxine Sodium 112 MCG TAB PO SCH (05:33)
[2018-05-01 05:46] LABS: Anion Gap 9 mmol/L (10-20); BUN (Urea Nitrogen) 14 mg/dL (8.4-25.7); Calc. Creatinine Clearance 78 mL/min (70-130); Carbon Dioxide 19 mmol/L (23-31); Chloride 102 mmol/L (98-107); Estimated GFR-MDRD Greater than 90; Glucose 84 mg/dL (83-110); Magnesium 1.5 mg/dL (1.6-2.6); Potassium 3.8 mmol/L (3.5-5.1); Sodium 126 mmol/L (136-145)
[2018-05-01 05:49] LABS: Band 12 % (5-11); Lymphocytes 44 % (21-51); MDiff Complete? YES; Monocytes 16 % (0-10); Neutrophil 28 % (42-75); Platelet Morphology Comment Appears Decreased; RBC Morphology Normal
[2018-05-01] MEDS: Nystatin Powder 15 GM BOT TOP SCH ×2 (09:14→21:44)
[2018-05-01] MEDS: Famotidine 20 MG TAB PO SCH ×2 (09:14→21:43)
[2018-05-01] MEDS: DorzolamidE/Timolol 2%/0.5% Ophth Soln 10 ml Bottle EA EYE SCH ×2 (09:14→21:45)
[2018-05-01] MEDS: Vancomycin HCl 1 GM in Premix Bag 1 BAG IVPB SCH ×2 (09:15→21:44)
[2018-05-01] MEDS: NS 0.9% w/ 20 MEQ KCL 1,000 ML/1,000 ML BAG IV SCH (12:52)
--- NOTE | 2018-05-01 12:59 | PDOC.PN ---
- Subjective Encounter Start Date: 05/01/18 Encounter Start Time: 08:00 Pt seen for followup re: sepsis. - Objective Resuscitation Status - Order Detail: 04/30/18 12:56 Resuscitation Status Routine Resuscitation Status: DNAR: NO Resuscitation Discussed with: confirmed with pt and his Additional comments: DNAR consent signed by pt himself MAR Reviewed: Yes Vital Signs & Weight: Vital Signs (12 hours) Temp Pulse Resp BP Pulse Ox 05/01/18 09:17 97.6 F 75 18 121/59 L 97 05/01/18 08:30 97 05/01/18 05:30 98.1 F 05/01/18 04:00 101.4 F H 83 18 132/63 96 Weight Admit Weight 166 lb Weight 171 lb 4.8 oz I&O: 04/30/18 05/01/18 05/02/18 06:59 06:59 07:59 Intake Total 900 2020 Output Total 550 700 400 Balance 350 1320 -400 Result Diagrams: 05/01/18 05:02 05/01/18 05:02 EKG Reviewed by me: Yes (Tele: V-paced) Phys Exam - Physical Examination Constitutional: NAD HEENT: moist MMs Neck: supple Respiratory: clear to auscultation bilateral Cardiovascular: RRR Gastrointestinal: soft Neurological: moves all 4 limbs Psychiatric: normal affect Skin: no rash Dx/Plan (1) Sepsis Code(s): A41.9 - SEPSIS, UNSPECIFIED ORGANISM Status: Acute Comment: secondary to MRSA bacteremia, improving (2) Febrile neutropenia Code(s): D70.9 - NEUTROPENIA, UNSPECIFIED; R50.81 - FEVER PRESENTING WITH CONDITIONS CLASSIFIED ELSEWHERE Status: Acute Comment: maintain neutropenic precautions (3) Bacteremia due to methicillin resistant Staphylococcus aureus Code(s): R78.81 - BACTEREMIA Status: Acute Comment: on IV vancomycin (4) Pancytopenia Code(s): D61.818 - OTHER PANCYTOPENIA Status: Acute Comment: secondary to chemotherapy, continue to monitor counts (5) Hypokalemia Code(s): E87.6 - HYPOKALEMIA Status: Resolved - Plan * . Review of Systems - Review of Systems Respiratory: Cough, Sputum Cardiovascular: negative: chest pain, palpitations, orthopnea, paroxysmal nocturnal dyspnea, edema, light headedness Gastrointestinal: negative: Nausea, Vomiting, Abdominal Pain, Diarrhea, Constipation, Melena, Hematochezia - Medications/Allergies Allergies/Adverse Reactions: Allergies Allergy/AdvReac Type Severity Reaction Status Date / Time codeine Allergy Verified 02/02/14 13:50 Medications: Current Medications Acetaminophen (Tylenol) 650 mg PO Q4H PRN PRN Reason: Headache/Fever/Mild Pain (1-3) Last Admin: 05/01/18 04:00 Dose: 650 mg Artificial Tears (Tears Naturale) 2 drop EA EYE PRN PRN PRN Reason: Dry Eyes Bisacodyl (Dulcolax) 10 mg [place] DAILYPRN PRN PRN Reason: Constipation Last Admin: 04/30/18 21:47 Dose: 10 mg Calcium Carbonate (Tums) 1,000 mg PO Q4H PRN PRN Reason: Heartburn or Indigestion Dorzolamide/Timolol (Cosopt 2-0.5% Ophth Soln) 1 drop EA EYE BID [facility] Last Admin: 05/01/18 09:14 Dose: 1 drop Famotidine (Pepcid) 20 mg PO BID [facility] Last Admin: 05/01/18 09:14 Dose: 20 mg Guaifenesin (Robitussin Sf) 200 mg PO Q4H PRN PRN Reason: Cough Hydralazine HCl (Apresoline) 10 mg SLOW IVP Q4H PRN PRN Reason: SBP > 180 and HR < 70 Potassium Chloride/Sodium Chloride (Ns 0.9% W/ 20 Meq Kcl) 1,000 ml in 1,000 mls @ 50 mls/hr IV .Q20H [facility] Last Admin: 05/01/18 12:52 Dose: 1,000 mls Vancomycin HCl 1 gm/ Device 200 mls @ 200 mls/hr IVPB 1000,2200 [facility] Last Admin: 05/01/18 09:15 Dose: 200 mls Latanoprost (Xalatan 0.005% Ophth Soln) 1 drop EA EYE HS [facility] Last Admin: 04/30/18 21:31 Dose: 1 drop Levothyroxine Sodium (Synthroid) 112 mcg PO 0600 [facility] Last Admin: 05/01/18 05:33 Dose: 112 mcg Loperamide HCl (Imodium) 2 mg PO PRN PRN PRN Reason: Diarrhea/Loose Stools Loratadine (Claritin) 10 mg PO DAILYPRN PRN PRN Reason: Sinus Symptoms Mineral Oil/White Petrolatum (Eucerin Cream) 0 gm TOP BIDPRN PRN PRN Reason: Dry Skin Miscellaneous Medication (Pharmacy To Dose) 1 each IVPB PRN PRN PRN Reason: Pharmacy to dose Nystatin (Mycostatin Powder) 1 gm TOP BID [facility] Last Admin: 05/01/18 09:14 Dose: 1 gm Ondansetron HCl (Zofran Odt) 4 mg PO Q6H PRN PRN Reason: Nausea/Vomiting Ondansetron HCl (Zofran) 4 mg IVP Q6H PRN PRN Reason: Nausea/Vomiting Senna/Docusate Sodium (Senokot S) 2 tab PO BIDPRN PRN PRN Reason: Constipation Sodium Chloride ([place] Nasal [place] 0.65%) 0 ml EA NARE QIDPRN PRN PRN Reason: Nasal Congestion Throat Lozenges (Cepastat Lozenges) 1 sumanth PO Q2H PRN PRN Reason: Sore Throat Zolpidem Tartrate (Ambien) 5 mg PO HSPRN PRN PRN Reason: Insomnia
[2018-05-01] MEDS: Latanoprost 0.005% Ophth Soln 2.5 ml Bottle EA EYE SCH (21:44)
--- NOTE | 2018-05-01 23:35 | EKG ---
Test Reason : Blood Pressure : / mmHG Vent. Rate : 102 BPM Atrial Rate : 102 BPM P-R Int : 152 ms QRS Dur : 166 ms QT Int : 396 ms P-R-T Axes : 090 -48 105 degrees QTc Int : 516 ms Sinus tachycardia Left axis deviation Left bundle branch block Abnormal ECG Confirmed by SILVERIO LARA, KARTIK ([id number]), field map editor RADHA RUFF ([id number]) on 05/01/2018 11:35:18 PM Referred By: Confirmed By:KARTIK SAWYER MD
[2018-05-02 05:22] LABS: Mean Corpuscular HGB CONC 33.3 g/dL (32.0-36.0); Mean Corpuscular Hemoglobin 29.1 pg (27.0-31.0); Mean Corpuscular Volume 87.5 fL (78.0-98.0); Mean Platelet Volume 13.2 fL (7.4-10.4); Platelet Count 26 thou/uL (130-400); RBC Distribution Width 15.1 % (11.5-14.5); Red Blood Cell (RBC) Count 3.07 mill/uL (4.70-6.10); White Blood Cell (WBC) Count 0.5 thou/uL (4.8-10.8)
[2018-05-02 05:38] LABS: Anion Gap 11 mmol/L (10-20); BUN (Urea Nitrogen) 12 mg/dL (8.4-25.7); Calc. Creatinine Clearance 88 mL/min (70-130); Calcium 8.6 mg/dL (7.8-10.44); Carbon Dioxide 21 mmol/L (23-31); Chloride 106 mmol/L (98-107); Estimated GFR-MDRD Greater than 90; Glucose 94 mg/dL (83-110); Potassium 3.7 mmol/L (3.5-5.1); Sodium 134 mmol/L (136-145)
[2018-05-02] MEDS: Levothyroxine Sodium 112 MCG TAB PO SCH (05:39)
[2018-05-02] MEDS: NS 0.9% w/ 20 MEQ KCL 1,000 ML/1,000 ML BAG IV SCH (09:10)
[2018-05-02] MEDS: Famotidine 20 MG TAB PO SCH ×2 (09:11→20:58)
[2018-05-02] MEDS: Vancomycin HCl 1 GM in Premix Bag 1 BAG IVPB SCH ×2 (09:11→21:00)
[2018-05-02] MEDS: DorzolamidE/Timolol 2%/0.5% Ophth Soln 10 ml Bottle EA EYE SCH ×2 (09:11→20:59)
[2018-05-02] MEDS: Nystatin Powder 15 GM BOT TOP SCH ×2 (09:11→20:59)
--- NOTE | 2018-05-02 13:13 | PDOC.PN ---
- Subjective Encounter Start Date: 05/02/18 Encounter Start Time: 08:20 Pt seen for followup re: sepsis. Feels about the same as yesterday, no new complaints. - Objective Resuscitation Status - Order Detail: 04/30/18 12:56 Resuscitation Status Routine Resuscitation Status: DNAR: NO Resuscitation Discussed with: confirmed with pt and his Additional comments: DNAR consent signed by pt himself MAR Reviewed: Yes Vital Signs & Weight: Vital Signs (12 hours) Temp Pulse Resp BP BP Pulse Ox 05/02/18 10:53 98.1 F 77 16 114/55 L 97 05/02/18 09:10 99 05/02/18 07:15 97.5 F L 84 18 145/65 H 99 05/02/18 04:40 98.0 F 77 20 141/64 H 99 Weight Admit Weight 166 lb Weight 174 lb 4.8 oz I&O: 05/01/18 05/02/18 05/03/18 05:59 06:59 06:59 Intake Total Output Total Balance Result Diagrams: 05/02/18 04:18 05/02/18 04:18 EKG Reviewed by me: Yes (Tele: NSR) Phys Exam - Physical Examination Constitutional: NAD HEENT: moist MMs Neck: supple Respiratory: clear to auscultation bilateral Cardiovascular: RRR Gastrointestinal: soft Neurological: moves all 4 limbs Psychiatric: normal affect Dx/Plan (1) Sepsis Code(s): A41.9 - SEPSIS, UNSPECIFIED ORGANISM Status: Acute Comment: Improving (2) Febrile neutropenia Code(s): D70.9 - NEUTROPENIA, UNSPECIFIED; R50.81 - FEVER PRESENTING WITH CONDITIONS CLASSIFIED ELSEWHERE Status: Acute Comment: maintain neutropenic precautions (3) Bacteremia due to methicillin resistant Staphylococcus aureus Code(s): R78.81 - BACTEREMIA Status: Acute Comment: on IV vancomycin, contact precautions (4) Pancytopenia Code(s): D61.818 - OTHER PANCYTOPENIA Status: Acute Comment: continue to monitor counts (5) Hypokalemia Code(s): E87.6 - HYPOKALEMIA Status: Resolved - Plan * . Review of Systems - Review of Systems Constitutional: fever, weakness. negative: chills, sweats, malaise Respiratory: Cough, Sputum. negative: Dry, Shortness of Breath, Hemoptysis, SOB with Excertion, Pleuritic Pain, Wheezing - Medications/Allergies Allergies/Adverse Reactions: Allergies Allergy/AdvReac Type Severity Reaction Status Date / Time codeine Allergy Verified 02/02/14 13:50 Medications: Current Medications Acetaminophen (Tylenol) 650 mg PO Q4H PRN PRN Reason: Headache/Fever/Mild Pain (1-3) Last Admin: 05/01/18 20:14 Dose: 650 mg Artificial Tears (Tears Naturale) 2 drop EA EYE PRN PRN PRN Reason: Dry Eyes Bisacodyl (Dulcolax) 10 mg [place] DAILYPRN PRN PRN Reason: Constipation Last Admin: 04/30/18 21:47 Dose: 10 mg Calcium Carbonate (Tums) 1,000 mg PO Q4H PRN PRN Reason: Heartburn or Indigestion Dorzolamide/Timolol (Cosopt 2-0.5% Ophth Soln) 1 drop EA EYE BID [facility] Last Admin: 05/02/18 09:11 Dose: 1 drop Famotidine (Pepcid) 20 mg PO BID [facility] Last Admin: 05/02/18 09:11 Dose: Not Given Guaifenesin (Robitussin Sf) 200 mg PO Q4H PRN PRN Reason: Cough Hydralazine HCl (Apresoline) 10 mg SLOW IVP Q4H PRN PRN Reason: SBP > 180 and HR < 70 Potassium Chloride/Sodium Chloride (Ns 0.9% W/ 20 Meq Kcl) 1,000 ml in 1,000 mls @ 50 mls/hr IV .Q20H [facility] Last Admin: 05/02/18 09:10 Dose: 1,000 mls Vancomycin HCl 1 gm/ Device 200 mls @ 200 mls/hr IVPB 1000,2200 [facility] Last Admin: 05/02/18 09:11 Dose: 200 mls Latanoprost (Xalatan 0.005% Ophth Soln) 1 drop EA EYE HS [facility] Last Admin: 05/01/18 21:44 Dose: 1 drop Levothyroxine Sodium (Synthroid) 112 mcg PO 0600 [facility] Last Admin: 05/02/18 05:39 Dose: 112 mcg Loperamide HCl (Imodium) 2 mg PO PRN PRN PRN Reason: Diarrhea/Loose Stools Loratadine (Claritin) 10 mg PO DAILYPRN PRN PRN Reason: Sinus Symptoms Mineral Oil/White Petrolatum (Eucerin Cream) 0 gm TOP BIDPRN PRN PRN Reason: Dry Skin Miscellaneous Medication (Pharmacy To Dose) 1 each IVPB PRN PRN PRN Reason: Pharmacy to dose Nystatin (Mycostatin Powder) 1 gm TOP BID [facility] Last Admin: 05/02/18 09:11 Dose: 1 gm Ondansetron HCl (Zofran Odt) 4 mg PO Q6H PRN PRN Reason: Nausea/Vomiting Ondansetron HCl (Zofran) 4 mg IVP Q6H PRN PRN Reason: Nausea/Vomiting Senna/Docusate Sodium (Senokot S) 2 tab PO BIDPRN PRN PRN Reason: Constipation Sodium Chloride ([place] Nasal [place] 0.65%) 0 ml EA NARE QIDPRN PRN PRN Reason: Nasal Congestion Throat Lozenges (Cepastat Lozenges) 1 sumanth PO Q2H PRN PRN Reason: Sore Throat Zolpidem Tartrate (Ambien) 5 mg PO HSPRN PRN PRN Reason: Insomnia
--- NOTE | 2018-05-02 16:17 | PRG ---
DATE OF SERVICE: 05/02/2018 SUBJECTIVE: A little bit of pleuritic pain in the right anterior chest intermittently with coughing spells. No headaches. No sore throat, odynophagia, or dysphagia. No dyspnea. No back pain. No other appendicular structure symptoms, having increased urinary frequency. OBJECTIVE: VITAL SIGNS: Temperature max 102 yesterday at 7:00 p.m., now is 98.1; BP 114/55; pulse 77; respirations 16; and O2 saturation 97%. GENERAL: Peripheral IV access. Ocular movements conjugate. Chronically ill-appearing, in no acute distress, oriented. LUNGS: Symmetric air entry. No crackles or wheezing. HEART: S1 and S2. Regular rate. ABDOMEN: Soft, not distended. EXTREMITIES: No joint inflammatory process. No back tenderness. LABORATORY DATA: White cell count 0.5, hemoglobin 9, platelets 26,000. Creatinine 0.6. The CT of chest showed small pneumothorax on the right side. ASSESSMENT AND PLAN: Myelodysplastic syndrome, on chemo; neutropenia; methicillin-resistant Staphylococcus aureus bacteremia with uncertain primary site; small pneumothorax; moderate aortic regurgitation with possibility of endocarditis. Repeat blood cultures thus far negative. We will need a PICC line insertion and continue with protracted IV antimicrobial either 4 or 6 weeks depending on the results of MAT. Job ID: [id number]
[2018-05-02] MEDS: Acetaminophen 325 MG TAB PO PRN (18:59)
[2018-05-02] MEDS: Latanoprost 0.005% Ophth Soln 2.5 ml Bottle EA EYE SCH (20:58)
[2018-05-03] MEDS: Levothyroxine Sodium 112 MCG TAB PO SCH (05:50)
[2018-05-03] MEDS: NS 0.9% w/ 20 MEQ KCL 1,000 ML/1,000 ML BAG IV SCH (05:51)
[2018-05-03 06:37] LABS: Hemoglobin 8.3 g/dL (14.0-18.0); Mean Corpuscular HGB CONC 30.8 g/dL (32.0-36.0); Mean Corpuscular Hemoglobin 27.1 pg (27.0-31.0); Mean Platelet Volume 14.7 fL (7.4-10.4); Platelet Count 19 thou/uL (130-400); Red Blood Cell (RBC) Count 3.06 mill/uL (4.70-6.10); White Blood Cell (WBC) Count 0.7 thou/uL (4.8-10.8)
[2018-05-03 06:47] LABS: Anion Gap 11 mmol/L (10-20); BUN (Urea Nitrogen) 13 mg/dL (8.4-25.7); Calc. Creatinine Clearance 92 mL/min (70-130); Calcium 8.2 mg/dL (7.8-10.44); Carbon Dioxide 20 mmol/L (23-31); Chloride 106 mmol/L (98-107); Estimated GFR-MDRD Greater than 90; Glucose 95 mg/dL (83-110); Potassium 3.6 mmol/L (3.5-5.1); Sodium 133 mmol/L (136-145)
[2018-05-03 07:21] LABS: Band 5 % (5-11); Hypochromia SLIGHT = 6-15 cells (100X) (0-5/hpf); Lymphocytes 75 % (21-51); MDiff Complete? YES; Monocytes 5 % (0-10); Neutrophil 15 % (42-75); Platelet Morphology Comment Appears Decreased; Polychromasia SLIGHT = 2-3 cells (100X) (0-2/hpf); Tear Drops SLIGHT = 2-5 cells (100X) (0-1/hpf)
[2018-05-03] MEDS: Acetaminophen 325 MG TAB PO PRN ×2 (08:14→20:22)
[2018-05-03] MEDS: Famotidine 20 MG TAB PO SCH ×2 (08:16→20:23)
--- NOTE | 2018-05-03 09:42 | PDOC.PN ---
- Subjective Encounter Start Date: 05/03/18 Encounter Start Time: 11:30 Subjective: Patient not feeling any better. No energy. Still fevering. - Objective Resuscitation Status - Order Detail: 04/30/18 12:56 Resuscitation Status Routine Resuscitation Status: DNAR: NO Resuscitation Discussed with: confirmed with pt and his Additional comments: DNAR consent signed by pt himself MAR Reviewed: Yes Vital Signs & Weight: Vital Signs (12 hours) Temp Pulse Resp BP BP Pulse Ox 05/03/18 08:00 101.2 F H 84 16 126/60 96 05/03/18 05:00 97.5 F L 82 18 139/90 99 Weight Admit Weight 166 lb Weight 173 lb 6.4 oz I&O: 05/02/18 05/03/18 05/04/18 06:59 06:59 06:59 Intake Total 2340 Output Total 1300 Balance 1040 Result Diagrams: 05/03/18 06:19 05/03/18 06:19 Phys Exam - Physical Examination Constitutional: NAD HEENT: moist MMs Respiratory: no wheezing, no rales, no rhonchi Cardiovascular: RRR Gastrointestinal: soft, non-tender, positive bowel sounds Neurological: non-focal Psychiatric: A&O x 3 Deviation from normal: depressed Dx/Plan (1) Bacteremia due to methicillin resistant Staphylococcus aureus Code(s): R78.81 - BACTEREMIA Status: Acute Comment: on IV vancomycin, contact precautions, MRSA, repeat cultures neg to date, will need MAT once over acute illness, PICC line and 4-6 weeks of abx (2) Febrile neutropenia Code(s): D70.9 - NEUTROPENIA, UNSPECIFIED; R50.81 - FEVER PRESENTING WITH CONDITIONS CLASSIFIED ELSEWHERE Status: Acute Comment: maintain neutropenic precautions (3) Pancytopenia Code(s): D61.818 - OTHER PANCYTOPENIA Status: Acute Comment: continue to monitor counts, platelets very low but no active bleeding, transfuse PRBC and Platelets as needed if drops below 15,000 (4) Sepsis Code(s): A41.9 - SEPSIS, UNSPECIFIED ORGANISM Status: Acute Comment: Improving (5) Demand ischemia Code(s): I24.8 - OTHER FORMS OF ACUTE ISCHEMIC HEART DISEASE Status: Acute Comment: from sepsis (6) Hypokalemia Code(s): E87.6 - HYPOKALEMIA Status: Resolved (7) Myelodysplastic syndrome, high grade Code(s): D46.Z - OTHER MYELODYSPLASTIC SYNDROMES Status: Acute Comment: s/p 1 cycle of Dacogen - Plan cont current plan of care, continue antibiotics, PT/OT * . - Discharge Day Encounter end time: 11:40
[2018-05-03 09:56] LABS: Vancomycin, Trough 17.6 ug/mL
[2018-05-03] MEDS: Vancomycin HCl 1 GM in Premix Bag 1 BAG IVPB SCH ×2 (09:56→21:58)
[2018-05-03] MEDS: DorzolamidE/Timolol 2%/0.5% Ophth Soln 10 ml Bottle EA EYE SCH ×2 (09:57→20:22)
[2018-05-03] MEDS: Nystatin Powder 15 GM BOT TOP SCH ×2 (09:58→20:23)
[2018-05-03] MEDS: Cefepime 1 GM in Sodium Chloride 0.9% 100 ML IVPB SCH ×2 (14:44→20:23)
[2018-05-03] MEDS: Micafungin 100 MG in Sodium Chloride 0.9% 100 ML IVPB SCH (15:30)
[2018-05-03] MEDS: Latanoprost 0.005% Ophth Soln 2.5 ml Bottle EA EYE SCH (20:21)
[2018-05-04] MEDS: NS 0.9% w/ 20 MEQ KCL 1,000 ML/1,000 ML BAG IV SCH ×2 (02:00→21:02)
[2018-05-04] MEDS: Levothyroxine Sodium 112 MCG TAB PO SCH (05:58)
[2018-05-04] MEDS: Cefepime 1 GM in Sodium Chloride 0.9% 100 ML IVPB SCH ×3 (05:58→23:00)
[2018-05-04 06:59] LABS: Hemoglobin 7.8 g/dL (14.0-18.0); Mean Corpuscular HGB CONC 33.6 g/dL (32.0-36.0); Mean Corpuscular Hemoglobin 28.9 pg (27.0-31.0); Mean Corpuscular Volume 85.8 fL (78.0-98.0); Mean Platelet Volume 13.7 fL (7.4-10.4); Platelet Count 15 thou/uL (130-400); RBC Distribution Width 15.1 % (11.5-14.5); White Blood Cell (WBC) Count 0.7 thou/uL (4.8-10.8)
[2018-05-04 07:15] LABS: Anion Gap 9 mmol/L (10-20); BUN (Urea Nitrogen) 11 mg/dL (8.4-25.7); Calc. Creatinine Clearance 95 mL/min (70-130); Calcium 8.1 mg/dL (7.8-10.44); Carbon Dioxide 22 mmol/L (23-31); Chloride 110 mmol/L (98-107); Estimated GFR-MDRD Greater than 90; Glucose 95 mg/dL (83-110); Potassium 3.5 mmol/L (3.5-5.1); Sodium 137 mmol/L (136-145)
--- NOTE | 2018-05-04 09:15 | PDOC.PN ---
- Subjective Encounter Start Date: 05/04/18 Encounter Start Time: 10:20 Subjective: Patient unchanged. Able to eat some breakfast. No energy. - Objective Resuscitation Status - Order Detail: 04/30/18 12:56 Resuscitation Status Routine Resuscitation Status: DNAR: NO Resuscitation Discussed with: confirmed with pt and his Additional comments: DNAR consent signed by pt himself MAR Reviewed: Yes Vital Signs & Weight: Vital Signs (12 hours) Temp Pulse Resp BP BP Pulse Ox 05/04/18 07:47 98.1 F 77 16 156/67 H 98 05/04/18 04:00 97.6 F 72 16 130/59 L 98 Weight Admit Weight 166 lb Weight 173 lb 12.8 oz I&O: 05/03/18 05/04/18 05/05/18 06:59 06:59 06:59 Intake Total 2340 1020 Output Total 1300 1100 Balance 1040 -80 Result Diagrams: 05/04/18 06:28 05/04/18 06:27 Phys Exam - Physical Examination HEENT: moist MMs Respiratory: no wheezing, no rales, no rhonchi Cardiovascular: RRR Gastrointestinal: soft, non-tender, positive bowel sounds Neurological: non-focal, moves all 4 limbs Psychiatric: A&O x 3 Deviation from normal: depressed affect Dx/Plan (1) Bacteremia due to methicillin resistant Staphylococcus aureus Code(s): R78.81 - BACTEREMIA Status: Acute Comment: on IV vancomycin, contact precautions, MRSA, repeat cultures neg to date, will need MAT once over acute illness, PICC line and 4-6 weeks of abx (2) Febrile neutropenia Code(s): D70.9 - NEUTROPENIA, UNSPECIFIED; R50.81 - FEVER PRESENTING WITH CONDITIONS CLASSIFIED ELSEWHERE Status: Acute Comment: maintain neutropenic precautions (3) Pancytopenia Code(s): D61.818 - OTHER PANCYTOPENIA Status: Acute Comment: continue to monitor counts, platelets very low but no active bleeding, transfuse PRBC and Platelets as needed if drops below 15,000 (4) Sepsis Code(s): A41.9 - SEPSIS, UNSPECIFIED ORGANISM Status: Acute Comment: Improving (5) Demand ischemia Code(s): I24.8 - OTHER FORMS OF ACUTE ISCHEMIC HEART DISEASE Status: Acute Comment: from sepsis (6) Hypokalemia Code(s): E87.6 - HYPOKALEMIA Status: Resolved (7) Myelodysplastic syndrome, high grade Code(s): D46.Z - OTHER MYELODYSPLASTIC SYNDROMES Status: Acute Comment: s/p 1 cycle of Dacogen - Plan cont current plan of care, continue antibiotics, PT/OT, DVT proph w/SCDs * . - Discharge Day Encounter end time: 10:30
[2018-05-04 09:24] LABS: Band 4 % (5-11); Elliptocytes SLIGHT = 2-5 cells (100X) (0-1/hpf); Lymphocytes 56 % (21-51); MDiff Complete? YES; Monocytes 8 % (0-10); Neutrophil 32 % (42-75); Ovalocytes SLIGHT = 2-5 cells (100X) (0-1/hpf); Platelet Morphology Comment Appears Decreased; Polychromasia SLIGHT = 2-3 cells (100X) (0-2/hpf)
[2018-05-04] MEDS: Famotidine 20 MG TAB PO SCH ×2 (09:26→20:06)
[2018-05-04] MEDS: DorzolamidE/Timolol 2%/0.5% Ophth Soln 10 ml Bottle EA EYE SCH ×2 (09:26→20:07)
[2018-05-04] MEDS: Nystatin Powder 15 GM BOT TOP SCH ×2 (09:26→20:06)
[2018-05-04] MEDS: Vancomycin HCl 1 GM in Premix Bag 1 BAG IVPB SCH ×4 (10:54→23:49)
[2018-05-04] MEDS: Micafungin 100 MG in Sodium Chloride 0.9% 100 ML IVPB SCH (12:49)
[2018-05-04] MEDS: Latanoprost 0.005% Ophth Soln 2.5 ml Bottle EA EYE SCH (20:07)
[2018-05-04] MEDS: Acetaminophen 325 MG TAB PO PRN (20:09)
[2018-05-05] MEDS: NS 0.9% w/ 20 MEQ KCL 1,000 ML/1,000 ML BAG IV SCH (05:40)
[2018-05-05] MEDS: Levothyroxine Sodium 112 MCG TAB PO SCH (05:40)
[2018-05-05] MEDS: Cefepime 1 GM in Sodium Chloride 0.9% 100 ML IVPB SCH ×3 (05:40→22:33)
[2018-05-05 06:26] LABS: Hemoglobin 7.5 g/dL (14.0-18.0); Mean Corpuscular HGB CONC 32.9 g/dL (32.0-36.0); Mean Corpuscular Hemoglobin 28.3 pg (27.0-31.0); Mean Corpuscular Volume 85.9 fL (78.0-98.0); Mean Platelet Volume 11.1 fL (7.4-10.4); Platelet Count 46 thou/uL (130-400); RBC Distribution Width 15.1 % (11.5-14.5); Red Blood Cell (RBC) Count 2.65 mill/uL (4.70-6.10); White Blood Cell (WBC) Count 0.8 thou/uL (4.8-10.8)
[2018-05-05 06:46] LABS: Anion Gap 9 mmol/L (10-20); BUN (Urea Nitrogen) 10 mg/dL (8.4-25.7); Calc. Creatinine Clearance 92 mL/min (70-130); Calcium 8.3 mg/dL (7.8-10.44); Carbon Dioxide 23 mmol/L (23-31); Chloride 108 mmol/L (98-107); Estimated GFR-MDRD Greater than 90; Glucose 96 mg/dL (83-110); Potassium 3.3 mmol/L (3.5-5.1); Sodium 137 mmol/L (136-145)
[2018-05-05 08:09] LABS: Band 8 % (5-11); Lymphocytes 60 % (21-51); MDiff Complete? YES; Monocytes 4 % (0-10); Neutrophil 28 % (42-75); Ovalocytes SLIGHT = 2-5 cells (100X) (0-1/hpf); Platelet Morphology Comment Appears Decreased; Polychromasia SLIGHT = 2-3 cells (100X) (0-2/hpf)
[2018-05-05] MEDS: DorzolamidE/Timolol 2%/0.5% Ophth Soln 10 ml Bottle EA EYE SCH ×2 (08:16→21:26)
[2018-05-05] MEDS: Famotidine 20 MG TAB PO SCH ×2 (08:16→21:27)
[2018-05-05] MEDS: Nystatin Powder 15 GM BOT TOP SCH ×2 (08:17→21:28)
--- NOTE | 2018-05-05 09:13 | PDOC.PN ---
- Subjective Encounter Start Date: 05/05/18 Encounter Start Time: 10:40 Subjective: Patient was able to stand up 5x with PT. Otherwise feeling about the -: same. - Objective Resuscitation Status - Order Detail: 04/30/18 12:56 Resuscitation Status Routine Resuscitation Status: DNAR: NO Resuscitation Discussed with: confirmed with pt and his Additional comments: DNAR consent signed by pt himself MAR Reviewed: Yes Vital Signs & Weight: Vital Signs (12 hours) Temp Pulse Pulse Resp BP BP Pulse Ox 05/05/18 03:45 96.2 F L 69 18 150/69 H 95 05/04/18 23:29 97.6 F 77 18 145/65 H 95 05/04/18 22:40 97.6 F 77 18 145/65 H 95 Weight Admit Weight 166 lb Weight 167 lb 3.2 oz I&O: 05/04/18 05/05/18 05/06/18 06:59 06:59 06:59 Intake Total 1020 1700 Output Total 1100 1450 Balance -80 250 Result Diagrams: 05/05/18 05:31 05/05/18 05:31 Phys Exam - Physical Examination Constitutional: NAD HEENT: moist MMs Respiratory: no wheezing, no rales, no rhonchi Cardiovascular: RRR Gastrointestinal: soft, positive bowel sounds Neurological: non-focal Psychiatric: normal affect, A&O x 3 Dx/Plan (1) Bacteremia due to methicillin resistant Staphylococcus aureus Code(s): R78.81 - BACTEREMIA Status: Acute Comment: on IV vancomycin, contact precautions, MRSA, repeat cultures neg to date, will need MAT once over acute illness, PICC line and 4-6 weeks of abx (2) Febrile neutropenia Code(s): D70.9 - NEUTROPENIA, UNSPECIFIED; R50.81 - FEVER PRESENTING WITH CONDITIONS CLASSIFIED ELSEWHERE Status: Acute Comment: maintain neutropenic precautions (3) Pancytopenia Code(s): D61.818 - OTHER PANCYTOPENIA Status: Acute Comment: continue to monitor counts, platelets transfused last on 05/04/2018, currently above 40,000 (4) Sepsis Code(s): A41.9 - SEPSIS, UNSPECIFIED ORGANISM Status: Acute Comment: Improving (5) Demand ischemia Code(s): I24.8 - OTHER FORMS OF ACUTE ISCHEMIC HEART DISEASE Status: Acute Comment: from sepsis (6) Hypokalemia Code(s): E87.6 - HYPOKALEMIA Status: Resolved (7) Myelodysplastic syndrome, high grade Code(s): D46.Z - OTHER MYELODYSPLASTIC SYNDROMES Status: Acute Comment: s/p 1 cycle of Dacogen - Plan cont current plan of care, continue antibiotics, PT/OT, DVT proph w/SCDs stable from cardiac standpoint to transfer to oncology * . - Discharge Day Encounter end time: 10:50
[2018-05-05] MEDS: Vancomycin HCl 1 GM in Premix Bag 1 BAG IVPB SCH (11:58)
[2018-05-05] MEDS: Micafungin 100 MG in Sodium Chloride 0.9% 100 ML IVPB SCH (13:26)
[2018-05-05 14:20] VITALS: BMI 24.7
[2018-05-05] MEDS: hydrALAZINE 20 MG/ML VIAL SLOW IVP PRN (20:06)
[2018-05-05] MEDS: Latanoprost 0.005% Ophth Soln 2.5 ml Bottle EA EYE SCH (21:26)
[2018-05-06] MEDS: Vancomycin HCl 1 GM in Premix Bag 1 BAG IVPB SCH ×2 (00:07→11:39)
[2018-05-06] MEDS: Acetaminophen 325 MG TAB PO PRN ×2 (00:07→20:05)
[2018-05-06 04:26] LABS: Hemoglobin 7.8 g/dL (14.0-18.0); Mean Corpuscular HGB CONC 34.2 g/dL (32.0-36.0); Mean Corpuscular Hemoglobin 29.9 pg (27.0-31.0); Mean Corpuscular Volume 87.4 fL (78.0-98.0); Platelet Count 48 thou/uL (130-400); RBC Distribution Width 15.3 % (11.5-14.5); Red Blood Cell (RBC) Count 2.59 mill/uL (4.70-6.10); White Blood Cell (WBC) Count 0.9 thou/uL (4.8-10.8)
[2018-05-06 04:31] LABS: Anion Gap 13 mmol/L (10-20); BUN (Urea Nitrogen) 11 mg/dL (8.4-25.7); Calc. Creatinine Clearance 90 mL/min (70-130); Calcium 8.3 mg/dL (7.8-10.44); Carbon Dioxide 18 mmol/L (23-31); Chloride 106 mmol/L (98-107); Estimated GFR-MDRD Greater than 90; Glucose 112 mg/dL (83-110); Potassium 3.4 mmol/L (3.5-5.1); Sodium 134 mmol/L (136-145)
[2018-05-06 04:43] LABS: Lymphocytes 60 % (21-51); MDiff Complete? YES; Monocytes 4 % (0-10); Neutrophil 36 % (42-75); Platelet Morphology Comment Appears Decreased
[2018-05-06] MEDS: Cefepime 1 GM in Sodium Chloride 0.9% 100 ML IVPB SCH ×3 (06:00→21:18)
[2018-05-06] MEDS: Levothyroxine Sodium 112 MCG TAB PO SCH (06:06)
--- NOTE | 2018-05-06 07:54 | PDOC.PN ---
- Subjective Encounter Start Date: 05/06/18 Encounter Start Time: 10:10 Subjective: Patient unchanged. No high fever overnight. After discussion with Dr. Holm: Billy last night patient is considering going home on hospice. - Objective Resuscitation Status - Order Detail: 04/30/18 12:56 Resuscitation Status Routine Resuscitation Status: DNAR: NO Resuscitation Discussed with: confirmed with pt and his Additional comments: DNAR consent signed by pt himself MAR Reviewed: Yes Vital Signs & Weight: Vital Signs (12 hours) Temp Pulse Resp BP BP Pulse Ox 05/06/18 04:00 97.3 F L 73 16 156/72 H 98 05/06/18 00:00 99.0 F 87 16 153/71 H 95 05/05/18 21:56 92 171/76 H 05/05/18 20:10 98 05/05/18 20:06 88 195/88 H 05/05/18 20:00 98.1 F 88 16 195/88 H 98 Weight Admit Weight 166 lb Weight 173 lb 7 oz I&O: 05/05/18 05/06/18 05/07/18 06:59 06:59 06:59 Intake Total 1700 960 Output Total 1450 1900 Balance 250 -940 Result Diagrams: 05/06/18 04:04 05/06/18 04:04 Phys Exam - Physical Examination Constitutional: NAD HEENT: moist MMs Respiratory: no wheezing, no rales, no rhonchi Cardiovascular: RRR, no significant murmur Gastrointestinal: soft, positive bowel sounds Neurological: non-focal Psychiatric: normal affect, A&O x 3 Dx/Plan (1) Bacteremia due to methicillin resistant Staphylococcus aureus Code(s): R78.81 - BACTEREMIA Status: Acute Comment: on IV vancomycin, contact precautions, MRSA, repeat cultures neg to date, will need MAT once over acute illness, PICC line and 4-6 weeks of abx (2) Febrile neutropenia Code(s): D70.9 - NEUTROPENIA, UNSPECIFIED; R50.81 - FEVER PRESENTING WITH CONDITIONS CLASSIFIED ELSEWHERE Status: Acute Comment: maintain neutropenic precautions (3) Pancytopenia Code(s): D61.818 - OTHER PANCYTOPENIA Status: Acute Comment: continue to monitor counts, platelets transfused last on 05/04/2018, currently above 40,000 (4) Sepsis Code(s): A41.9 - SEPSIS, UNSPECIFIED ORGANISM Status: Acute Comment: Improving (5) Demand ischemia Code(s): I24.8 - OTHER FORMS OF ACUTE ISCHEMIC HEART DISEASE Status: Acute Comment: from sepsis (6) Hypokalemia Code(s): E87.6 - HYPOKALEMIA Status: Resolved (7) Myelodysplastic syndrome, high grade Code(s): D46.Z - OTHER MYELODYSPLASTIC SYNDROMES Status: Acute Comment: s/p 1 cycle of Dacogen - Plan cont current plan of care, continue antibiotics, PT/OT Home on hospice if patient decides to go that way, otherwise -: will need correction IV abx. * . - Discharge Day Encounter end time: 10:20
[2018-05-06] MEDS: DorzolamidE/Timolol 2%/0.5% Ophth Soln 10 ml Bottle EA EYE SCH ×2 (08:48→21:14)
[2018-05-06] MEDS: Famotidine 20 MG TAB PO SCH ×2 (08:49→20:05)
[2018-05-06] MEDS: Nystatin Powder 15 GM BOT TOP SCH ×2 (08:49→20:06)
[2018-05-06] MEDS: NS 0.9% w/ 20 MEQ KCL 1,000 ML/1,000 ML BAG IV SCH (11:39)
[2018-05-06] MEDS: Micafungin 100 MG in Sodium Chloride 0.9% 100 ML IVPB SCH (12:40)
[2018-05-06] MEDS: Bisacodyl 10 MG SUPP PR PRN (17:42)
[2018-05-06] MEDS: hydrALAZINE 20 MG/ML VIAL SLOW IVP PRN (18:35)
[2018-05-06] MEDS: Latanoprost 0.005% Ophth Soln 2.5 ml Bottle EA EYE SCH (20:06)
[2018-05-07] MEDS: Vancomycin HCl 1 GM in Premix Bag 1 BAG IVPB SCH ×2 (00:16→12:33)
[2018-05-07 04:37] LABS: Anion Gap 13 mmol/L (10-20); BUN (Urea Nitrogen) 12 mg/dL (8.4-25.7); Calc. Creatinine Clearance 97 mL/min (70-130); Calcium 8.4 mg/dL (7.8-10.44); Carbon Dioxide 19 mmol/L (23-31); Chloride 109 mmol/L (98-107); Estimated GFR-MDRD Greater than 90; Glucose 115 mg/dL (83-110); Potassium 3.6 mmol/L (3.5-5.1); Sodium 137 mmol/L (136-145)
[2018-05-07 05:11] LABS: Mean Corpuscular HGB CONC 34.4 g/dL (32.0-36.0); Mean Corpuscular Hemoglobin 29.3 pg (27.0-31.0); Mean Corpuscular Volume 85.1 fL (78.0-98.0); Mean Platelet Volume 10.9 fL (7.4-10.4); Platelet Count 39 thou/uL (130-400); RBC Distribution Width 14.9 % (11.5-14.5); Red Blood Cell (RBC) Count 3.06 mill/uL (4.70-6.10); White Blood Cell (WBC) Count 1.3 thou/uL (4.8-10.8)
[2018-05-07 05:12] LABS: Anisocytosis SLIGHT = 6-15 cells (100X) (0-5/hpf); Band 12 % (5-11); Eosinophils 1 % (0-10); Lymphocytes 46 % (21-51); MDiff Complete? YES; Monocytes 14 % (0-10); Neutrophil 25 % (42-75); Ovalocytes SLIGHT = 2-5 cells (100X) (0-1/hpf); Platelet Morphology Comment Appears Decreased; Polychromasia SLIGHT = 2-3 cells (100X) (0-2/hpf); Reactive Lymphocytes 2 % (0-10)
[2018-05-07] MEDS: Levothyroxine Sodium 112 MCG TAB PO SCH (06:06)
[2018-05-07] MEDS: Cefepime 1 GM in Sodium Chloride 0.9% 100 ML IVPB SCH ×2 (06:06→15:04)
[2018-05-07] MEDS: Famotidine 20 MG TAB PO SCH (08:50)
[2018-05-07] MEDS: NS 0.9% w/ 20 MEQ KCL 1,000 ML/1,000 ML BAG IV SCH (08:50)
[2018-05-07] MEDS: Acetaminophen 325 MG TAB PO PRN (08:50)
[2018-05-07] MEDS: DorzolamidE/Timolol 2%/0.5% Ophth Soln 10 ml Bottle EA EYE SCH (08:50)
[2018-05-07] MEDS: Nystatin Powder 15 GM BOT TOP SCH (08:51)
[2018-05-07 08:56] VITALS: TEMP 97.4
--- NOTE | 2018-05-07 12:03 | PDOC.PN ---
- Subjective Encounter Start Date: 05/07/18 Encounter Start Time: 11:15 Subjective: no sob, at bedside -: is eating well - Objective Resuscitation Status - Order Detail: 04/30/18 12:56 Resuscitation Status Routine Resuscitation Status: DNAR: NO Resuscitation Discussed with: confirmed with pt and his Additional comments: DNAR consent signed by pt himself MAR Reviewed: Yes Vital Signs & Weight: Vital Signs (12 hours) Temp Pulse Resp BP Pulse Ox 05/07/18 08:00 97.4 F L 81 18 171/79 H 97 Weight Admit Weight 166 lb Weight 173 lb I&O: 05/06/18 05/07/18 05/08/18 06:59 06:59 06:59 Intake Total 960 1755 Output Total 1900 1275 Balance -940 480 Result Diagrams: 05/07/18 04:03 05/07/18 04:03 Phys Exam - Physical Examination HEENT: PERRLA, moist MMs Neck: no JVD, supple Respiratory: no wheezing, no rales Cardiovascular: RRR, no significant murmur Gastrointestinal: soft, non-tender, positive bowel sounds Musculoskeletal: no edema, pulses present Neurological: non-focal, moves all 4 limbs Dx/Plan (1) Bacteremia due to methicillin resistant Staphylococcus aureus Code(s): R78.81 - BACTEREMIA Status: Acute (2) Febrile neutropenia Code(s): D70.9 - NEUTROPENIA, UNSPECIFIED; R50.81 - FEVER PRESENTING WITH CONDITIONS CLASSIFIED ELSEWHERE Status: Acute (3) Myelodysplastic syndrome, high grade Code(s): D46.Z - OTHER MYELODYSPLASTIC SYNDROMES Status: Acute Comment: s/p 1 cycle of Dacogen (4) Pancytopenia Code(s): D61.818 - OTHER PANCYTOPENIA Status: Acute Comment: continue to monitor counts, platelets transfused last on 05/04/2018, currently around 40,000 (5) Sepsis Code(s): A41.9 - SEPSIS, UNSPECIFIED ORGANISM Status: Acute Qualifiers: Sepsis type: methicillin resistant Staphylococcus aureus Qualified Code(s) : A41.02 - Sepsis due to Methicillin resistant Staphylococcus aureus Comment: Improving - Plan hemostable -: family have opted for home with hospice with [facility] -: d/w , no outpt antibiotics -: may dc home when hospice is set up -: has poor prognosis due to high grade MDS with potential to turn into AML * . Review of Systems - Medications/Allergies Allergies/Adverse Reactions: Allergies Allergy/AdvReac Type Severity Reaction Status Date / Time codeine Allergy Verified 02/02/14 13:50 Medications: Current Medications Acetaminophen (Tylenol) 650 mg PO Q4H PRN PRN Reason: Headache/Fever/Mild Pain (1-3) Last Admin: 05/07/18 08:50 Dose: 650 mg Artificial Tears (Tears Naturale) 2 drop EA EYE PRN PRN PRN Reason: Dry Eyes Bisacodyl (Dulcolax) 10 mg RI DAILYPRN PRN PRN Reason: Constipation Last Admin: 05/06/18 17:42 Dose: 10 mg Calcium Carbonate (Tums) 1,000 mg PO Q4H PRN PRN Reason: Heartburn or Indigestion Dorzolamide/Timolol (Cosopt 2-0.5% Ophth Soln) 1 drop EA EYE BID [facility] Last Admin: 05/07/18 08:50 Dose: 1 drop Famotidine (Pepcid) 20 mg PO BID [facility] Last Admin: 05/07/18 08:50 Dose: 20 mg Guaifenesin (Robitussin Sf) 200 mg PO Q4H PRN PRN Reason: Cough Hydralazine HCl (Apresoline) 10 mg SLOW IVP Q4H PRN PRN Reason: SBP > 180 and HR < 70 Last Admin: 05/06/18 18:35 Dose: 10 mg Potassium Chloride/Sodium Chloride (Ns 0.9% W/ 20 Meq Kcl) 1,000 ml in 1,000 mls @ 50 mls/hr IV .Q20H [facility] Last Admin: 05/07/18 08:50 Dose: Not Given Cefepime HCl 1 gm/ Sodium (Chloride) 100 mls @ 200 mls/hr IVPB Q8HR [facility] Last Admin: 05/07/18 06:06 Dose: 100 mls Micafungin Sodium 100 mg/ (Sodium Chloride) 100 mls @ 100 mls/hr IVPB 1300 [facility] Last Admin: 05/06/18 12:40 Dose: 100 mls Vancomycin HCl 1 gm/ Device 200 mls @ 200 mls/hr IVPB 0000,1200 [facility] Last Admin: 05/07/18 00:16 Dose: 200 mls Latanoprost (Xalatan 0.005% Ophth Soln) 1 drop EA EYE HS [facility] Last Admin: 05/06/18 20:06 Dose: 1 drop Levothyroxine Sodium (Synthroid) 112 mcg PO 0600 [facility] Last Admin: 05/07/18 06:06 Dose: 112 mcg Loperamide HCl (Imodium) 2 mg PO PRN PRN PRN Reason: Diarrhea/Loose Stools Loratadine (Claritin) 10 mg PO DAILYPRN PRN PRN Reason: Sinus Symptoms Mineral Oil/White Petrolatum (Eucerin Cream) 0 gm TOP BIDPRN PRN PRN Reason: Dry Skin Miscellaneous Medication (Pharmacy To Dose) 1 each IVPB PRN PRN PRN Reason: Pharmacy to dose Nystatin (Mycostatin Powder) 1 gm TOP BID [facility] Last Admin: 05/07/18 08:51 Dose: 1 applic Ondansetron HCl (Zofran Odt) 4 mg PO Q6H PRN PRN Reason: Nausea/Vomiting Ondansetron HCl (Zofran) 4 mg IVP Q6H PRN PRN Reason: Nausea/Vomiting Senna/Docusate Sodium (Senokot S) 2 tab PO BIDPRN PRN PRN Reason: Constipation Last Admin: 05/02/18 20:59 Dose: 2 tab Sodium Chloride ([place] Nasal Guy 0.65%) 0 ml EA NARE QIDPRN PRN PRN Reason: Nasal Congestion Throat Lozenges (Cepastat Lozenges) 1 sumanth PO Q2H PRN PRN Reason: Sore Throat Zolpidem Tartrate (Ambien) 5 mg PO HSPRN PRN PRN Reason: Insomnia
[2018-05-07] MEDS: Micafungin 100 MG in Sodium Chloride 0.9% 100 ML IVPB SCH (13:42)
[2018-05-07 14:30] VITALS: BP 163/72
--- NOTE | 2018-05-10 07:40 | DIS ---
DATE OF ADMISSION: 04/28/2018 DATE OF DISCHARGE: 05/07/2018 DISCHARGE DISPOSITION: Home with hospice with [facility]. PRIMARY DISCHARGE DIAGNOSES: Methicillin-resistant Staphylococcus aureus bacteremia, febrile neutropenia, high-grade myelodysplastic syndrome with poor prognosis, pancytopenia due to chemotherapy, sepsis. PROCEDURES DONE DURING HOSPITALIZATION: Echo with 2D Doppler showed an ejection fraction of 55% to 60%, moderate mitral regurgitation and moderate aortic regurgitation were seen. CT chest showed tiny pneumothorax on the right lung base with small right pleural effusion, 5 mm right middle lobe pulmonary nodule, tiny pericardial effusion. Blood cultures x2 grew MRSA. A repeat culture on the showed no growth in 5 days. Stool for C diff was negative. Urine culture, no growth. Had a white count of 0.7, hemoglobin and hematocrit 10 and 29, platelet count 24 on the day of admission. Discharge white count was 1.3 with hemoglobin and hematocrit of 9 and 26 and platelet count of 39. DISCHARGE MEDICATIONS: Dorzolamide and latanoprost eye drops, Synthroid 112 mcg p.o. daily. ALLERGIES: ALLERGIC TO CODEINE. INPATIENT CONSULTS: 1. Dr. Gross for Infectious Disease. 2. Ms. Digna Gonsalez for Oncology. BRIEF COURSE DURING HOSPITALIZATION: The patient initially was admitted for neutropenic fever with pancytopenia and sepsis. His blood cultures x2 grew MRSA. The patient was on broad-spectrum IV antibiotics. He has had consultation with Dr. Gross. During the course of his stay, the patient had consultation with Ms. Digna Gonsalez for Oncology. The patient has known history of high-grade myelodysplastic syndrome and was at risk for conversion to leukemia with poor prognosis. In view of this, the patient and family decided to go into hospice at home. They did not want any active measures including continuation of antibiotics. In view of this, he is being discharged home. Please see a [id number] documentation for the day of discharge on [employer]. Job ID: [id number]
== END 2018-05-07 16:54 | disposition hospice, home (50) | DRG 871 ==
LOC: ERS 19:39 → 2NO 21:58 → ONC 05-05 16:54
PROVIDERS: ADMIT Internal Medicine; ATTEND Internal Medicine
PROC: 30233R1 Transfusion of Nonautologous Platelets into Peripheral Vein, Percutaneous Approach (ICD-10-PCS; 2018-04-30)
PROC: 30233R1 Transfusion of Nonautologous Platelets into Peripheral Vein, Percutaneous Approach (ICD-10-PCS; 2018-05-04)
PROC: 30233N1 Transfusion of Nonautologous Red Blood Cells into Peripheral Vein, Percutaneous Approach (ICD-10-PCS; principal; 2018-05-06)
DX: A41.02 Sepsis due to Methicillin resistant Staphylococcus aureus (principal); D61.810 Antineoplastic chemotherapy induced pancytopenia; C95.90 Leukemia, unspecified not having achieved remission; I24.8 Other forms of acute ischemic heart disease; E87.1 Hypo-osmolality and hyponatremia; Z66 Do not resuscitate; R65.20 Severe sepsis without septic shock; D46.9 Myelodysplastic syndrome, unspecified; E03.9 Hypothyroidism, unspecified; H40.9 Unspecified glaucoma; Z87.891 Personal history of nicotine dependence; Z88.2 Allergy status to sulfonamides; R50.81 Fever presenting with conditions classified elsewhere; E87.6 Hypokalemia; T45.1X5A Adverse effect of antineoplastic and immunosuppressive drugs, initial encounter; M10.9 Gout, unspecified; Z85.51 Personal history of malignant neoplasm of bladder; Z98.890 Other specified postprocedural states; Z88.5 Allergy status to narcotic agent; H91.90 Unspecified hearing loss, unspecified ear; Z79.899 Other long term (current) drug therapy; I35.1 Nonrheumatic aortic (valve) insufficiency
CPT/HCPCS: 36415; 36430; 71045; 71250; 80048; 80053; 80202; 81003; 81015; 82553; 83605; 83735; 83880; 84443; 84484; 85025; 85060; 86850; 86900; 86901; 87040; 87077; 87086; 87149; 87186; 87324; 87449; 93005; 93306; 94760; 96365; 96366; 96367; J0360; J0692; J2248; J2543; J3370; J3480; J7050; P9016; P9035; P9040; Q0163